=== PATIENT | male | born 1970 | race Caucasian/White ===

== ENCOUNTER 2022-03-07 14:41 | Emergency (ER) | payer MEDICAID, MEDICARE ==
[~2022-03-07] VITALS: Ht 177 cm; Wt 63.6 kg
[2022-03-07] MEDS ORDERED: morphine INJ 10 MG/ML 1ML (SYR OR VIAL) IVP STA ×2 (14:57→16:53)
[2022-03-07] MEDS ORDERED: NITROGLYCERIN 2% OINT 1 GM UNIT DOSE PACKET TOP ONE (15:00)
--- NOTE | 2022-03-07 15:00 | ED Lower Extremity ---
General Chief Complaint: Lower Extremity Stated Complaint: RT LOWER LEG NUMBNESS Nursing Triage Note: pt states he woke up around midnight last night with numbness and tingling in his right lower leg below the knee. Source: patient (DEVIKA ZUNIGAULTON) History of Present Illness Date Seen by Provider: Mar 07, 2022 Time Seen by Provider: 15:05 Initial Comments 51 M w/ unremarkable PMH present to ER with Rt distal LE numbness and pain. Pt states that starting abruptly at midnight last night pt's leg became numb and cold. Pt reports numbness and tingling sensation that has evolved into an achey pain. Pt claims he can hardly bear weight on rt extremity due to pain. denies taking any medications for symptom relief. Pt reports no symptoms of claudication prior to event. Denies any SOB, CP, palpitations, dizziness, or change in mental status. Admits to smoking 1/2 ppd. Onset: this morning Severity: severe Pain/Injury Location: right leg, right foot, right ankle, right heel Method of Injury: unknown (REJI ZUNIGA) Allergies and Home Medications Allergies Coded Allergies: No Known Drug Allergies (Unverified , 03/07/22) Patient Home Medication List Home Medication List Reviewed: Yes (REJI ZUNIGA) Home Medication List Reviewed: Yes (KALEIGH BELCHER MD) Review of Systems Constitutional: No chills, No diaphoresis, No fever, No malaise EENTM: No hearing loss, No vision loss, No throat swelling Respiratory: No cough, No dyspnea on exertion, No short of breath Cardiovascular: No chest pain, No edema, No palpitations Gastrointestinal: No abdominal pain, No constipation, No diarrhea Genitourinary: No decreased output, No dysuria, No frequency Musculoskeletal: muscle pain (rt distal LE ), muscle stiffness (rt distal LE ), muscle cramps (rt distal LE ) Skin: change in color (pallor of rt distal LE ) Psychiatric/Neurological: No Symptoms Reported (REJI ZUNIGA) Past Lhtvxml-Yalvhg-Hfkuas Hx Patient Social History Tobacco Use?: Yes Tobacco type used: Cigarettes Substance use?: No Alcohol Use?: No (REJI ZUNIGA) Physical Exam Vital Signs Vital Signs - First Documented 03/07/22 14:48 Temp 35.2 Pulse 101 Resp 18 B/P (MAP) 150/107 (121) Pulse Ox 97 (KALEIGH BELCHER MD) Vital Signs Capillary Refill : (REJI ZUNIGA) Height, Weight, BMI Height: '" Weight: lbs. oz. kg; 20.00 BMI Method: General Appearance: WD/WN, no apparent distress HEENT: PERRL/EOMI Neck: non-tender, normal inspection Cardiovascular: regular rate, rhythm, no edema, no gallop, no murmur Respiratory: chest non-tender, lungs clear, normal breath sounds, no respiratory distress, no accessory muscle use Gastrointestinal: normal bowel sounds, non tender, soft, no organomegaly, no pulsatile mass Back: normal inspection, no vertebral tenderness Hips: bilateral hip non-tender, bilateral hip normal inspection, bilateral hip normal range of motion, bilateral hip no evidence of injury Legs: right leg limited range of motion, right leg pain, right leg soft tissue tenderness, right leg other (pallor, drosalis pedis pulse 1+ Rt LE ) Knees: bilateral knee non-tender, bilateral knee normal inspection, bilateral knee normal range of motion, bilateral knee no evidence of injury Ankles: right ankle limited range of motion, right ankle pain, right ankle soft tissue tenderness Feet: right foot limited range of motion, right foot pain, right foot soft tissue tenderness Neurologic/Tendon: motor deficit (rt distal LE ), sensory deficit (Rt distal LE ) Neurologic/Psychiatric: alert, normal mood/affect, oriented x 3 Skin: cool (Rt distal LE ), pallor (rt distal LE ) Lymphatic: no adenopathy (REJI ZUNIGA) Cardiovascular: tachycardia (KALEIGH BELCHER MD) Progress/Results/Core Measures Results/Orders Lab Results Laboratory Tests Test 03/07/22 15:08 Range/Units White Blood Count 13.6 H 4.3-11.0 10^3/uL Red Blood Count 4.83 4.30-5.52 10^6/uL Hemoglobin 14.7 13.3-17.7 g/dL Hematocrit 43 40-54 % Mean Corpuscular Volume 89 80-99 fL Mean Corpuscular Hemoglobin 30 25-34 pg Mean Corpuscular Hemoglobin Concent 34 32-36 g/dL Red Cell Distribution Width 13.2 10.0-14.5 % Platelet Count 258 130-400 10^3/uL Mean Platelet Volume 8.6 L 9.0-12.2 fL Immature Granulocyte % (Auto) 0 % Neutrophils (%) (Auto) 68 42-75 % Lymphocytes (%) (Auto) 21 12-44 % Monocytes (%) (Auto) 10 0-12 % Eosinophils (%) (Auto) 0 0-10 % Basophils (%) (Auto) 0 0-10 % Neutrophils # (Auto) 9.3 H 1.8-7.8 X 10^3 Lymphocytes # (Auto) 2.9 1.0-4.0 X 10^3 Monocytes # (Auto) 1.4 H 0.0-1.0 X 10^3 Eosinophils # (Auto) 0.1 0.0-0.3 10^3/uL Basophils # (Auto) 0.0 0.0-0.1 10^3/uL Immature Granulocyte # (Auto) 0.0 0.0-0.1 10^3/uL Prothrombin Time 12.9 12.2-14.7 SEC INR Comment 0.9 0.8-1.4 Activated Partial Thromboplast Time 34 24-35 SEC Sodium Level 138 135-145 MMOL/L Potassium Level 3.9 3.6-5.0 MMOL/L Chloride Level 106 98-107 MMOL/L Carbon Dioxide Level 25 21-32 MMOL/L Anion Gap 7 5-14 MMOL/L Blood Urea Nitrogen 14 7-18 MG/DL Creatinine 0.87 0.60-1.30 MG/DL Estimat Glomerular Filtration Rate 104 BUN/Creatinine Ratio 16 Glucose Level 99 70-105 MG/DL Calcium Level 9.3 8.5-10.1 MG/DL Corrected Calcium 9.1 8.5-10.1 MG/DL Magnesium Level 1.8 1.6-2.4 MG/DL Total Bilirubin 1.0 0.1-1.0 MG/DL Aspartate Amino Transf (AST/SGOT) 25 5-34 U/L Alanine Aminotransferase (ALT/SGPT) 18 0-55 U/L Alkaline Phosphatase 63 40-136 U/L Total Protein 7.5 6.4-8.2 GM/DL Albumin 4.3 3.2-4.5 GM/DL (KALEIGH BELCHER MD) My Orders Orders - KALEIGH BELCHER MD Cbc With Automated Diff (03/07/22 14:57) Magnesium (03/07/22 14:57) Chest 1 View, Ap/Pa Only (03/07/22 14:57) Ekg Tracing (03/07/22 14:57) Comprehensive Metabolic Panel (03/07/22 14:57) Protime With Inr (03/07/22 14:57) Partial Thromboplastin Time (03/07/22 14:57) O2 (03/07/22 14:57) Monitor-Rhythm Ecg Trace Only (03/07/22 14:57) Ed Iv/Invasive Line Start (03/07/22 14:57) Morphine Injection (Morphine Injection (03/07/22 14:57) Nitroglycerin Ointment (Nitrobid Ointme (03/07/22 15:00) Us Right Low Ext [id number] (03/07/22 14:58) Heparin Drip [id number] Unit/500ml (Heparin (03/07/22 15:15) Heparin (Bolus Per Protocol) (Heparin (B (03/07/22 15:15) Initiate Heparin Full Protocol (03/07/22 15:06) Morphine Injection (Morphine Injection (03/07/22 16:53) (KALEIGH BELCHER MD) Medications Given in ED (KALEIGH BELCHER MD) Vital Signs/I&O 03/07/22 03/07/22 14:48 18:19 Temp 35.2 35.2 Pulse 101 103 Resp 18 18 B/P (MAP) 150/107 (121) 153/111 Pulse Ox 97 95 (KALEIGH BELCHER MD) Blood Pressure Mean: 121 Progress Progress Note #1: Time: 15:55 Progress Note Patient seen and evaluated by me. I have reviewed and agree with the medical student's documentation. 51yo male with onset of pins/needles/pain to Right Lower leg around midnight last night. Steadily progressive pain and now numbness to the right lower leg. Never had any thing like this before. No prescribed medications. Smoker. No trauma. Denies symptoms of illness. Exam pertinent for: Gen: Alert and oriented no significant distress CV: RR, tachy; no palpable pulses right foot; pallor to RLE about mid calf distally Chest: CTA bilat Abd: benign Neuro: diminished sensation Rt foot; no other focal deficits Eval today includes PE with basic labs, EKG, CXR and Arterial ultrasound of right leg. LAbs are unremarkable (WBC 13K). CH12 grossly normal and coag profile negative. EKG NSR at [address] segment change. Arterial doppler shows monophasic flow to the knee and possible thrombus peroneal trunk with no flow in PT, AT, DP arteries. CXR, no acute findings. Patient is treated with an inch of nitropaste to the dorsum of the right foot and full heparin protocol. He declined pain medications. Discussed case with our local dermatologist managing partner, Dr Rick - he advised he does not do peripheral interventions and patient would need transferred (1505) I called [facility] in [place] at 1537, they are at capacity; [facility] at 1538 they will have no vascular services in [place] after 5opm through Thursday at 7am. I spoke with the patient at 1545 and advised him of the results of labs and ultrasound and local bed availability. He would like me to try [facility]. I spoke with their transfer center at 1548. They are assessing to see if they have capacity to accept. Progress Note #2: Time: 16:19 Progress Note At 1609 Dr Fonseca with [facility] had to decline due to [facility] at max bed availability (893 patients in their hospital) 1610 All [facility] hospitals closed, not accepting outside transfers 1613 call to [facility], awaiting call back on bed availability 1626 [facility], no vascular - per Dr Lopez 1627 Call to [facility] in [place] No bed availability 1630 call to [facility] in [place] 1645 Jun, Dr Ruano, accepts patient to their SICU patient reassessed at this time as I am telling him we found a bed at [facility] in [place]; the foot has slightly more color (still cold) and he can barely flex his toes plantar. He is now asking for pain meds, as he had declined them previously. Images being clouded to [facility]. Progress Note #3: Time: 17:26 Progress Note Change in transfer plan; patient consented. Will be going to [facility]. Discussed with transfer line at 1717; same accepting physician. (KALEIGH BELCHER MD) Initial ECG Impression Date: Mar 07, 2022 Initial ECG Impression Time: 15:43 Initial ECG Rate: 87 Initial ECG Rhythm: Normal Sinus Initial ECG Intervals: Normal Initial ECG Impression: Normal (KALEIGH BELCHER MD) Diagnostic Imaging Diagonstic Imaging: Xray Plain Films/CT/US/NM/MRI: chest [facility] [place] [place] NAME: [facility] REC#: [id number] PT STATUS: REG ER : 1970 PHYSICIAN: KALEIGH BELCHER MD ADMIT DATE: 03/07/22/ER Signed Date of Exam:03/07/22 CHEST 1 VIEW, AP/PA ONLY EXAMINATION: Chest, one view. HISTORY: Chest pain. COMPARISON: None available. FINDINGS: The lung volumes are normal. No focal consolidation is seen. No large pleural effusion or pneumothorax is seen. The cardiomediastinal silhouette is normal in size and contour. No acute osseous abnormality is seen. IMPRESSION: 1. No acute pleural-parenchymal process. Dictated by: Dictated on workstation # [id number] Dict: 03/07/22 1517 Trans: 03/07/22 1520 [id number] Interpreted by: CARLOS VAZQUEZ DO Electronically signed by: CARLOS VAZQUEZ DO 03/07/22 1520 Diagonstic Imaging: Ultrasound Comments [facility] [place] NAME: [facility] REC#: [id number] PT STATUS: REG ER : 1970 PHYSICIAN: KALEIGH BELCHER MD ADMIT DATE: 03/07/22/ER Draft Date of Exam:03/07/22 US RIGHT LOW EXT [id number] INDICATION: Right foot pain and ischemia. EXAMINATION: Arterial Doppler of right leg. Duplex ultrasound of the arterial system of the right leg was done with grayscale, spectral wave form and color Doppler analysis. FINDINGS: Duplex ultrasound of the arterial system of the right leg shows monophasic wave pattern in the common femoral, superficial femoral and popliteal arteries. The tibioperoneal trunk appears to be occluded at its origin. There is no flow seen in the anterior tibial artery. IMPRESSION: Monophasic and severely low velocities from the common femoral artery through the popliteal artery with occlusion at the tibioperoneal trunk, including the anterior tibial artery. Dictated on workstation # [id number] Dict: 03/07/22 1554 Trans: 03/07/22 1600 PJE [id number] Interpreted by: NAOMI WARE MD Electronically signed by: (KALEIGH BELCHER MD) Critical Care Note Critical Care Start Time: 15:05 Stop Time: 17:28 Total Time (minutes) critical care time : 60 minutes in the evaluation, management of this patient with acute right lower extremity arterial occlusion. Time includes initial evaluation, review and interpretation of labs, imaging. Discussion with local dermatologist managing partner, multiple phone calls to find bed availability, arranging transfer to outlying facility. TIme also includes intitiation of heparin protocol and serial re-evaluations; discussion with family members. (KALEIGH BELCHER MD) Departure Impression Primary Impression: Ischemia of right lower extremity Additional Impression: Peroneal artery occlusion, right Disposition: XFER SHT-TRM HOSP Condition: Stable Transfer Transfer Reason: Exceeds level of care Time Spoke to Accepting Phy: 17:15 Transfer Progress Notes Discussed with Dr Ruano at [facility] Transfer Time: 17:45 Transfer Facility: [facility] [place] Method of Transfer: Air (KALEIGH BELCHER MD) Verification and Attestation of Medical Student E/M Service A medical student performed and documented this service in my presence. I reviewed and verified all information documented by the medical student and made modifications to such information, when appropriate. I personally performed the physical exam and medical decision making. Kaleigh Belcher, Mar 07, 2022,16:07 (KALEIGH BELCHER MD) REJI ZUNIGA Mar 07, 2022 15:00 KALEIGH BELCHER MD Mar 07, 2022 15:30
[2022-03-07] MEDS ORDERED: HEParin DRIP 25000 UNIT/500ML 500 ML IV SCH (15:15)
[2022-03-07] MEDS ORDERED: HEParin 1000 UNIT/ML (10ML VIAL) FOR BOLUS IV SCH (15:15)
--- NOTE | 2022-03-07 15:20 | Diagnostic Imaging Report ---
EXAMINATION: Chest, one view. HISTORY: Chest pain. COMPARISON: None available. FINDINGS: The lung volumes are normal. No focal consolidation is seen. No large pleural effusion or pneumothorax is seen. The cardiomediastinal silhouette is normal in size and contour. No acute osseous abnormality is seen. IMPRESSION: 1. No acute pleural-parenchymal process. Dictated by: Dictated on workstation # [id number]
[2022-03-07 15:23] LABS: BASOPHILS % (AUTO) 0 % (0-10); EOSINOPHILS # (AUTO) 0.1 10^3/uL (0.0-0.3); EOSINOPHILS % (AUTO) 0 % (0-10); HEMATOCRIT 43 % (40-54); HEMOGLOBIN 14.7 g/dL (13.3-17.7); LYMPHOCYTES # (AUTO) 2.9 X 10^3 (1.0-4.0); LYMPHOCYTES % (AUTO) 21 % (12-44); MEAN CORPUSCULAR HEMOGLOBIN 30 pg (25-34); MEAN CORPUSCULAR HGB CONC 34 g/dL (32-36); MEAN CORPUSCULAR VOLUME 89 fL (80-99); MEAN PLATELET VOLUME 8.6 fL (9.0-12.2); MONOCYTES # (AUTO) 1.4 X 10^3 (0.0-1.0); MONOCYTES % (AUTO) 10 % (0-12); NEUTROPHILS # (AUTO) 9.3 X 10^3 (1.8-7.8); NEUTROPHILS % (AUTO) 68 % (42-75); PLATELET COUNT 258 10^3/uL (130-400); WHITE BLOOD COUNT 13.6 10^3/uL (4.3-11.0)
[2022-03-07 15:38] LABS: INR 0.9 (0.8-1.4); PROTHROMBIN TIME PATIENT 12.9 SEC (12.2-14.7)
[2022-03-07 15:45] LABS: ALBUMIN 4.3 GM/DL (3.2-4.5); CALCIUM 9.3 MG/DL (8.5-10.1); CREATININE SERUM 0.87 MG/DL (0.60-1.30); MAGNESIUM 1.8 MG/DL (1.6-2.4); POTASSIUM 3.9 MMOL/L (3.6-5.0); TOTAL PROTEIN 7.5 GM/DL (6.4-8.2)
--- NOTE | 2022-03-07 16:01 | Diagnostic Imaging Report ---
INDICATION: Right foot pain and ischemia. EXAMINATION: Arterial Doppler of right leg. Duplex ultrasound of the arterial system of the right leg was done with grayscale, spectral wave form and color Doppler analysis. FINDINGS: Duplex ultrasound of the arterial system of the right leg shows monophasic wave pattern in the common femoral, superficial femoral and popliteal arteries. The tibioperoneal trunk appears to be occluded at its origin. There is no flow seen in the anterior tibial artery. IMPRESSION: Monophasic and severely low velocities from the common femoral artery through the popliteal artery with occlusion at the tibioperoneal trunk, including the anterior tibial artery. Dictated by: Dictated on workstation # [id number]
[2022-03-07 18:19] VITALS: BP 153/111
== END 2022-03-07 18:22 | disposition short-term general hospital (02) ==
LOC: EDUNIT# 14:41 → ER 14:44
DX: I70.221 Atherosclerosis of native arteries of extremities with rest pain, right leg (principal); F17.210 Nicotine dependence, cigarettes, uncomplicated; Z28.310 Unvaccinated for COVID-19
CPT/HCPCS: 36415; 71045; 80053; 83735; 85025; 85610; 85730; 93005; 93926

== ENCOUNTER → 2022-05-07 | Outpatient (CLI) | payer MEDICARE, MEDICAID | LOC: CARD 11:14 | PROVIDERS: ATTEND Internal Medicine Cardiovascular Disease | DX: I10 Essential (primary) hypertension (principal); I25.10 Atherosclerotic heart disease of native coronary artery without angina pectoris | CPT/HCPCS: 93306 ==